=== PATIENT | male | born 1935 | race Caucasian/White ===

== ENCOUNTER 2018-05-13 08:06 | Day surgery (SDC) ==
[2018-05-13] MEDS: BETADINE OPTH PREP OP PRN ×2 (09:40→10:15)
[2018-05-13] MEDS: TETRACAINE 0.5% UNIT-DOSE OP PRN ×3 (09:40→10:25)
[2018-05-13] MEDS: CYCLOGYL 2% OPTH OP PRN ×3 (09:41→09:51)
[2018-05-13] MEDS ORDERED: ZOFRAN 4 MG/2 ML IVP ONE (09:46)
[2018-05-13] MEDS ORDERED: LIDOCAINE 1%/PHENYLEPHRINE 1.5% BSS (SURGERY) INTRAOCULA ONE (09:46)
[2018-05-13] MEDS ORDERED: LIDOCAINE 1% 20 ML MDV ID STA (09:46)
[2018-05-13] MEDS ORDERED: BSS WITH EPINEPHRINE OP ONE (09:46)
[2018-05-13] MEDS ORDERED: DEX-MOXI-KETOR OPTH INJ 1/0.5/0.4 MG/ML IO ONE (09:46)
[2018-05-13] MEDS ORDERED: BRIMONIDINE TARTRATE 0.2% OPTH SOL OP PRN (09:46)
[2018-05-13 09:56] VITALS: TEMP 97.4
[2018-05-13] MEDS ORDERED: VERSED ONE (10:17)
[2018-05-13] MEDS ORDERED: SUBLIMAZE ONE (10:17)
[2018-05-15 11:12] VITALS: BP 128/57
== END 2018-05-13 11:30 | disposition home or self-care (01) ==
LOC: SURG 08:06
PROVIDERS: ATTEND Ophthalmology
DX: H25.813 Combined forms of age-related cataract, bilateral (principal)

== ENCOUNTER 2018-05-27 09:56 | Day surgery (SDC) ==
[2018-05-27] MEDS: BETADINE OPTH PREP OP PRN ×2 (11:46→12:21)
[2018-05-27] MEDS: TETRACAINE 0.5% UNIT-DOSE OP PRN ×2 (11:46→12:21)
[2018-05-27] MEDS: CYCLOGYL 2% OPTH OP PRN ×3 (11:47→11:57)
[2018-05-27] MEDS ORDERED: BSS WITH EPINEPHRINE OP ONE (11:53)
[2018-05-27] MEDS ORDERED: ZOFRAN 4 MG/2 ML IVP ONE (11:53)
[2018-05-27] MEDS ORDERED: LIDOCAINE 1% 20 ML MDV ID STA (11:53)
[2018-05-27] MEDS ORDERED: LIDOCAINE 1%/PHENYLEPHRINE 1.5% BSS (SURGERY) INTRAOCULA ONE (11:53)
[2018-05-27] MEDS ORDERED: DEX-MOXI-KETOR OPTH INJ 1/0.5/0.4 MG/ML IO ONE (11:53)
[2018-05-27] MEDS ORDERED: BRIMONIDINE TARTRATE 0.2% OPTH SOL OP PRN (11:53)
[2018-05-27] MEDS ORDERED: SUBLIMAZE ONE (12:30)
[2018-05-27] MEDS ORDERED: VERSED ONE (12:30)
[2018-05-27 17:01] VITALS: TEMP 98.1
[2018-05-29 13:51] VITALS: BP 124/56
== END 2018-05-27 13:20 | disposition home or self-care (01) ==
LOC: SURG 09:56
PROVIDERS: ATTEND Ophthalmology
DX: H25.811 Combined forms of age-related cataract, right eye (principal)